=== PATIENT | male | born 1950 | race Caucasian/White ===

== ENCOUNTER 2017-04-02 17:52 | Emergency (ER) | payer MEDICARE ==
[2017-04-02] MEDS ORDERED: ASPIRIN 81 MG TAB.CHEW PO ONE (18:07)
[2017-04-02] MEDS ORDERED: SUCRALFATE 1 G/10 ML UDC PO ONE (18:08)
[2017-04-02] MEDS ORDERED: MAG HYDROX/ALUMINUM HYD/SIMETH 30 ML UDC PO ONE (18:08)
[2017-04-02] MEDS ORDERED: LIDOCAINE HCL 20 ML UDC PO ONE (18:08)
[2017-04-02 18:21] LABS: Hematocrit 49.2 % (42.0-52.0); Hemoglobin 17.7 gm/dL (13.5-18.0); Mean Cell Volume 90.4 fl (78-100); Mean Corpuscular Hemoglobin 32.5 pg (27-31); Neutrophil # 6.2 K/mm3 (1.3-6.0); Neutrophil % 70.3 % (42-75.0); Platelet Count 221 K/mm3 (150-450); Red Blood Count 5.44 M/mm3 (4.7-6.0); Red Cell Distribution Width 12.9 % (11.5-14.0); White Blood Count 8.9 K/mm3 (4.0-10.5)
[2017-04-02] MEDS ORDERED: ASPIRIN 81 MG TAB.CHEW ONE (18:22)
[2017-04-02 18:33] LABS: Prothrombin Time (Patient) 10.3 Seconds (9.4-11.4)
[2017-04-02 18:37] LABS: INR 0.99 INR (0.90-1.10); Partial Thrombolplastin Time 22.2 Seconds (24-32)
[2017-04-02 18:40] LABS: ALT 29 U/L (19-67); AST 19 U/L (0-48); Albumin * 4.8 gm/dl (3.4-5.0); Alkaline Phosphatase * 72 U/L (50-170); Amylase * 76 U/L (25-115); BUN/Creatinine Ratio 23.3 (9.0-21.6); Bilirubin, Total 0.6 mg/dL (0.0-1.1); Blood Urea Nitrogen 27 mg/dL (6-23); Ca. Corrected For Albumin 8.8 mg/dL (8.4-10.2); Calcium * 9.8 mg/dL (7.9-10.9); Chloride 104 mmol/L (97-106); Glucose * 108 mg/dL (70-110); Lipase 110 U/L (73-393); Potassium 3.7 mmol/L (3.4-4.6); Sodium 143 mmol/L (132-142); Total Protein 8.3 gm/dL (6.2-8.2); Troponin I Less than 0.017 ng/ml (0.00-0.10)
[2017-04-02 18:44] LABS: Anion Gap 15.6 mmol/L (6.8-13.8); Carbon Dioxide 27.1 mmol/L (24-32.6)
[2017-04-02] MEDS ORDERED: ONDANSETRON 4 MG TAB.RAPDIS ONE (18:50)
[2017-04-02] MEDS ORDERED: ONDANSETRON 4 MG TAB.RAPDIS PO ONE (18:50)
[2017-04-02] MEDS ORDERED: NORMAL SALINE 1,000 ML IV ONE (18:59)
--- NOTE | 2017-04-02 18:59 | ERNOTE ---
<Kat Luciano - Last Filed: 04/02/17 22:08> Abdominal HPI - Narrative Date of Service: 04/02/17 - General Chief Complaint: Abdominal Pain Time Seen by Provider: 04/02/17 17:53 Source: patient Exam Limitations: no limitations - Immun/Allergies/Home Medications Immunizatons: IMMUNIZATION HX Immunizations Up to Date Yes History of Influenza Vaccine No Hx Pneumococcal Vaccination No Allergies/Adverse Reactions: Allergies No Known Allergies Allergy (Verified 04/02/17 18:02) Home Medications: HOME MEDICATIONS Atenolol [Tenormin] 50 mg PO HS 06/30/13 [Last Taken Unknown] Hydrochlorothiazide 25 mg PO DAILY 06/30/13 [Last Taken Unknown] Naproxen [Naprosyn] 500 mg PO TID 06/30/13 [Last Taken Unknown] Carbamazepine 400 mg PO TID 01/03/14 [Last Taken Unknown] - History of Present Illness Narrative: Pt. comes in with c/o upper epigastric pain and diarrhea for two days. Pt. states that he has had 5-6 loose stools/day and he has not wanted to eat since. Pt. denies any SOB, nausea or vomiting but does state atht the pain moves up into his chest and throat. Pt. denies any alleviating or aggravating factors or prehospital treatment. Review of Systems - Review of Systems Constitutional: Present: no symptoms reported. Absent: recent illness, fever, chills, weakness, fatigue, malaise EYE: Present: no symptoms reported ENT: Present: no symptoms reported Respiratory: Present: no symptoms reported. Absent: shortness of breath, cough , wheezing Cardiology: Present: chest pain. Absent: palpitations, edema Gastrointestinal/Abdominal: Present: diarrhea, abdominal pain. Absent: nausea, vomiting Genitourinary: Present: no symptoms reported. Absent: frequency, pain, dysuria , decreased urinary output Musculoskeletal: Present: no symptoms reported. Absent: back pain, joint pain Skin: Present: no symptoms reported. Absent: rash, change in color Neurological: Present: no symptoms reported. Absent: headache, dizziness/light- headedness, numbness, tingling All Other Systems: All systems neg except as marked - Patient's Past Medical History Patient History - Medical: Arthritis, Headache Patient History - Cardiac/Respiratory: Hypertension Patient History - Cancer: No Hx of Cancer Patient History - Surgical Procedures: Pacemaker, Other, Hernia Repair Patient History - Other: None - Family History Mother Family History - Cardiac/Respiratory: Cardiac Arrest Father Family History - Cardiac/Respiratory: Cardiac Arrest - Social History Living Situations: home Abuse History: No History of abuse Psych History: No pertinent hx Smoking Status: Never smoker Have you smoked in the past 12 months: No Alcohol Use: none Drug Use: none - Immunizations Immunizations Up to Date: Yes Hx Pneumococcal Vaccination: No History of Influenza Vaccine: No Physical Exam - Physical Exam General Appearance: Present: wd/wn, alert, no apparent distress Head Exam: Present: normal inspection, no evidence of injury Eye Exam: Normal inspection: bilateral, PERRL: bilateral, EOMI: bilateral Ears, Nose, Throat: Present: normal ENT inspection, normal pharynx Neck: Present: normal inspection, nontender. Absent: lymphadenopathy (R), lymphadenopathy (L) Respiratory: Present: no respiratory distress, normal breath sounds, no accessory muscle use, chest nontender, lungs clear Cardiovascular/Chest: Present: regular rate, rhythm, no murmur, normal peripheral pulses Gastrointestinal/Abdominal: Present: normal bowel sounds, nondistended, no organomegaly, tenderness - LUQ Back Exam: Present: normal inspection Extremity Exam: Present: normal inspection, non-tender, normal range of motion, no edema Neurological Exam: Present: alert, oriented, normal mood/affect, no motor/ sensory deficits, primary products inspectors II-XII nml as tested, normal cerebellar test Skin Exam: Present: normal color, warm/dry ED Progress - Results and Orders Patient's Lab Results:: I have reviewed the patient's lab results. - Vital Signs Patient's Vital Signs:: I have reviewed the patient's vital signs. Vital Signs: Vital Signs 04/02/17 17:58 Temperature 36.7 C Pulse Rate 88 Respiratory 20 Rate Blood Pressure 136/76 O2 Sat by Pulse 94 Oximetry - EKG EKG: other - vpaced no change from previous EKG read: Reviewed by me EKG Comments: Interp by Dr Pina - X-Ray X-Ray #1 X-Ray: abdomen Interpretation: Interp. by me X-ray Comments: dilated loops o f bowel adn air fluid levels X-Ray #2 X-Ray: chest Interpretation: Interp. by me X-ray Comments: no consolidation no atelactasis. Loop of bowel noted on high riding diaphragm overlying lung - Progress/Reassessment Chief Complaint: Abdominal Pain Progress:: Unchanged - Transfer of Care Physician Sign Out: YuliyaMichelleKat Marie Receiving Physician: Julissa Ivory Pending Results: CT/MRI results Expected Disposition: Admit Departure - Departure Clinical Impression: Gastroenteritis Disposition: Home self-care Condition: Good Instructions: Viral Gastroenteritis, Adult, [id number], Food Choices to Help Relieve Diarrhea, Adult Additional Instructions: try over the counter probiotics, call your doctor for follow up Referrals: Mahamed Willis MD [Staff Physician] - <Julissa Ivory - Last Filed: 04/02/17 22:28> Abdominal HPI - Immun/Allergies/Home Medications Immunizatons: IMMUNIZATION HX Immunizations Up to Date Yes History of Influenza Vaccine No Hx Pneumococcal Vaccination No ED Progress - Results and Orders Patient's Lab Results:: I have reviewed the patient's lab results. - Vital Signs Patient's Vital Signs:: I have reviewed the patient's vital signs. Vital Signs: Vital Signs 04/02/17 04/02/17 04/02/17 17:58 18:50 19:19 Temperature 36.7 C Pulse Rate 88 59 L 58 L Respiratory 20 20 20 Rate Blood Pressure 136/76 133/78 129/74 O2 Sat by Pulse 94 95 96 Oximetry 04/02/17 04/02/17 04/02/17 19:39 20:04 20:31 Temperature Pulse Rate 59 L 60 58 L Respiratory 20 20 20 Rate Blood Pressure 130/57 114/74 133/70 O2 Sat by Pulse 98 98 95 Oximetry 04/02/17 04/02/17 21:05 22:06 Temperature Pulse Rate 60 60 Respiratory 20 20 Rate Blood Pressure 135/87 134/78 O2 Sat by Pulse 95 96 Oximetry - CT/Ultrasound CT/Ultrasound Narrative: CT abdomen/pelvis: no obstruction, most likely gastroenteritis - Progress/Reassessment Progress Note-Subjective: 04/02/17 22:27 patient feeling much better, no vomiting, abdominal pain improved, discussed CT results
[2017-04-02 19:02] LABS: Urine Bilirubin 1 mg/dl (NEGATIVE); Urine Blood Negative /ul (NEGATIVE); Urine Ketone 5 mg/dL (NEGATIVE); Urine Nitrite Negative (NEGATIVE); Urine Protein 30 mg/dL (NEGATIVE); Urine Specific Gravity 1.025 SP.GR. (1.005-1.030); Urine Urobilinogen Normal (NORMAL); Urine pH 5.5 pH (5.0-7.0)
[2017-04-02 19:15] LABS: Urine Appearance Slightly Cloudy; Urine Bacteria TRACE; Urine Color Amber; Urine RBC TRACE /hpf (0-5); Urine WBC TRACE /hpf (0-5)
[2017-04-02] MEDS ORDERED: DIATRIZOATE MEGLUMINE, SODIUM 30 ML BTL PO ONE (19:31)
[2017-04-02] MEDS ORDERED: DIATRIZOATE MEGLUMINE, SODIUM 30 ML BTL ONE (19:32)
[2017-04-02 22:35] VITALS: BP 132/78
== END 2017-04-02 22:34 | disposition home or self-care (01) ==
LOC: ER 17:52
DX: K52.9 Noninfective gastroenteritis and colitis, unspecified (principal)